=== PATIENT | male | born 1990 | race Two or more races ===

== ENCOUNTER 2018-06-01 22:46 | Inpatient (IN) | payer OTHER ==
[~2018-06-01] VITALS: Ht 175.3 cm; Wt 76.2 kg
[2018-06-01] MEDS ORDERED: LANTUS SOL100 UNIT/1 (23:14)
[2018-06-01] MEDS ORDERED: HUMALOG100 UNIT/1 (23:14)
== END 2018-06-05 18:06 | disposition home or self-care (01) | DRG 391 ==
LOC: ER 22:46 → MEDJ 06-02 12:30 → SEC-K 06-02 12:30 → MEDJ 06-02 13:10
PROVIDERS: ADMIT Internal Medicine
PROC: 8E0ZXY6 Isolation (ICD-10-PCS; principal; 2018-06-02)
DX: A08.8 Other specified intestinal infections (principal); E11.00 Type 2 diabetes mellitus with hyperosmolarity without nonketotic hyperglycemic-hyperosmolar coma (NKHHC); N17.8 Other acute kidney failure; E86.0 Dehydration